=== PATIENT | female | born 1955 | race Two or more races ===

== ENCOUNTER 2018-03-05 08:14 | Outpatient (CLI) | payer OTHER ==
[~2018-03-05] VITALS: Ht 157.5 cm; Wt 70.3 kg
== END 2018-03-05 08:30 | disposition home or self-care (01) ==
LOC: OFIC 805 08:14
DX: H93.13 Tinnitus, bilateral (principal); H90.3 Sensorineural hearing loss, bilateral

== ENCOUNTER 2018-03-18 15:48 | Outpatient (CLI) | payer OTHER ==
[~2018-03-18] VITALS: Ht 152.4 cm; Wt 70.3 kg
== END 2018-03-18 16:10 | disposition home or self-care (01) ==
LOC: OFIC 805 15:48
DX: H93.13 Tinnitus, bilateral (principal); H90.3 Sensorineural hearing loss, bilateral

== ENCOUNTER → 2018-12-04 | Outpatient (CLI) | payer OTHER | END | disposition home or self-care (01) | LOC: MAMO-SONO 09:45 → SONOGRAMA 10:01 | DX: E04.2 Nontoxic multinodular goiter (principal) ==

== ENCOUNTER → 2023-07-16 | Emergency (ER) | payer OTHER ==
[~2023-07-16] VITALS: Ht 157.5 cm; Wt 74.8 kg
[~2023-07-16] MED LIST: FUROsemide 20 MG TABLET PO ONE; cloNIDine HCL 0.2 MG TABLET PO ONE
== END | disposition left against medical advice (07) ==
LOC: ER
DX: I10 Essential (primary) hypertension (principal)